=== PATIENT | female | born 1990 | race Hispanic/Latino ===

== ENCOUNTER 2018-11-06 10:46 | Inpatient (IN) | payer BC, MEDICAID | END 2018-11-09 14:35 | disposition home or self-care (01) | LOC: LDH 10:46 → WSH 11-07 14:40 | PROC: 10E0XZZ Delivery of Products of Conception, External Approach (ICD-10-PCS; principal; ~2018-11-06) | PROC: 0KQM0ZZ Repair Perineum Muscle, Open Approach (ICD-10-PCS; ~2018-11-06) | DX: O80 Encounter for full-term uncomplicated delivery (principal); Z37.0 Single live birth; Z3A.38 38 weeks gestation of pregnancy; O70.1 Second degree perineal laceration during delivery ==

== ENCOUNTER 2018-11-12 21:08 | Emergency (ER) | payer BC, MEDICAID ==
[~2018-11-12 21:08] MED LIST: FERR-82 PO; PREN1COM14 PO
== END 2018-11-12 22:28 | disposition home or self-care (01) ==
LOC: EDH 21:08
DX: O90.89 Other complications of the puerperium, not elsewhere classified (principal); K62.89 Other specified diseases of anus and rectum; Z79.899 Other long term (current) drug therapy
CPT/HCPCS: 99281

== ENCOUNTER 2022-02-11 21:37 | Observation (INO) | payer BC, MEDICAID ==
[~2022-02-11] VITALS: Ht 152.4 cm; Wt 69.9 kg
[2022-02-11] MEDS ORDERED: LACTATED RINGERS 1000ML IV PRN (22:00)
[2022-02-11 22:18] LABS: APPEARANCE,URINE CLEAR (CLEAR); BILIRUBIN,URINE NEGATIVE (NEGATIVE); COLOR,URINE COLORLESS (YELLOW); GLUCOSE, URINE (UA) NEGATIVE (NEGATIVE); KETONES,URINE NEGATIVE (NEGATIVE); LEUKOCYTE ESTERASE ,URINE NEGATIVE Leu/uL (NEGATIVE); NITRATE,URINE NEGATIVE (NEGATIVE); OCCULT BLOOD,URINE NEGATIVE (NEGATIVE); PH,URINE 6.5 (5.0-8.0); PROTEIN,URINE NEGATIVE (NEGATIVE); UROBILINOGEN,URINE 0.2 mg/dL (0.2-1.0)
[2022-02-11 23:00] VITALS: BP 120/74
[2022-02-12] MEDS ORDERED: LACTATED RINGERS 1000ML 1,000 ML IV SCH (05:30)
== END 2022-02-12 06:35 | disposition home or self-care (01) ==
LOC: EDH 21:37 → LDH 21:38
PROVIDERS: ADMIT Obstetrics & Gynecology; ATTEND Obstetrics & Gynecology
DX: O60.03 Preterm labor without delivery, third trimester (principal); O12.03 Gestational edema, third trimester; Z3A.37 37 weeks gestation of pregnancy; Z79.899 Other long term (current) drug therapy
CPT/HCPCS: 81003; 96361 ×2; 96360; G0378 ×9; G0379